=== PATIENT | female | born 1955 | race African-American/Black ===

== ENCOUNTER 2017-07-08 08:49 | Outpatient (CLI) | payer BC | END 2017-07-08 08:50 | disposition home or self-care (01) | LOC: BICMAMMO 08:49 | PROVIDERS: ATTEND Physician Assistant | DX: Z12.31 Encounter for screening mammogram for malignant neoplasm of breast (principal); M81.0 Age-related osteoporosis without current pathological fracture | CPT/HCPCS: 77063; 77067; 77080 ==

== ENCOUNTER 2018-03-09 12:52 | Outpatient (CLI) | payer BC ==
--- NOTE | 2018-03-09 14:17 | RAD ---
TWO VIEWS LEFT HIP 03/10/18 INDICATION: Left hip pain. COMPARISON: None. FINDINGS: There is mild degenerative arthrosis of the left hip. IMPRESSION: No acute osseous abnormality. Mild degenerative arthrosis left hip. POS: [facility]
== END 2018-03-09 12:53 | disposition home or self-care (01) ==
LOC: TBSIIMAG 12:52
PROVIDERS: ATTEND Neurological Surgery
DX: M25.552 Pain in left hip (principal); M54.16 Radiculopathy, lumbar region; M16.12 Unilateral primary osteoarthritis, left hip

== ENCOUNTER 2018-03-19 12:39 | Outpatient (CLI) | payer BC ==
--- NOTE | 2018-03-19 15:00 | MRI ---
MRI LUMBAR SPINE WITHOUT IV CONTRAST: Date: 03/19/18 HISTORY: Lumbar radiculopathy, bilateral hip pain greater on left side. Symptoms have been present for 2 years . COMPARISON: None available. FINDINGS: There is a 1.0 cm increased T2-weighted signal intensity focus in the inferior pole of the right kidn ey. I am unsure if this is related to a portion of the collecting system or this is related to a smal l parapelvic renal cyst. Remainder of retroperitoneal structures demonstrate a normal MRI appearance. There is mild left convex scoliosis of the lumbar spine. There is heterogeneity of the bone marrow, w hich could be related to conversion to red marrow. Multilevel degenerative changes are seen in the lumbar spine. Conus medullaris is normal in appearanc e and terminates at the level of the L1 vertebral body. T11-12 Level: There is a mild broad based disc osteophyte complex. There is mild effacement of the ventral subarach noid space. The neural foramina are patent. T12-L1 Level: There is no disc bulge or disc herniation. Central spinal canal and neural foramina are patent. L1-2 Level: There is mid disc osteophyte complex present. This results in slight flattening of the anterior aspec t of the thecal sac. There is mild bilateral neural foraminal narrowing present. L2-3 Level: There is broad based disc osteophyte complex which results in only slight effacement of the ventral a spect of the thecal sac. There is mild bilateral neural foraminal narrowing. L3-4 Level: There is a mild broad based disc osteophyte complex. Mild facet hypertrophic changes are noted. There is prominent epidural fat seen posteriorly. There is mild generalized narrowing of the central spina l canal related to the prominent epidural fat, which was also seen lateral to the thecal sac at this level. Minimal disc osteophyte complex is present, which does not result in significant mass effect o n the thecal sac. The neural foramina are patent with minimal encroachment on the right neural forame n. L4-5 Level: There is loss of intervertebral disc height. There is a broad based disc osteophyte complex. Prominen t facet hypertrophic changes are seen on the left. There is prominence of the epidural fat posteriorl y. There is generalized narrowing of the thecal sac, predominantly related to the prominence of the e pidural fat posteriorly, in addition to the mild disc bulge. There is mild bilateral neural foraminal narrowing, greater on the left. L5-S1 Level: There is loss of intervertebral disc height with mild end plate degenerative changes. There is a broa d based disc osteophyte complex which results in slight flattening of the anterior aspect of the thec al sac. Prominent osteophyte is seen laterally on the left at this level and there are facet hypertro phic changes greater on the left. Findings result in moderate left-sided neural foraminal narrowing. The lateral osteophyte may potentially contact the exited left L5 nerve root laterally. There is mini mal right-sided neural foraminal narrowing. IMPRESSION: 1. Multilevel degenerative changes within the lumbar spine. 2. Left convex scoliosis lumbar spine. POS: [facility]
== END 2018-03-19 12:40 | disposition home or self-care (01) ==
LOC: TBSIIMAG 12:39
PROVIDERS: ATTEND Neurological Surgery
DX: M47.26 Other spondylosis with radiculopathy, lumbar region (principal); M41.9 Scoliosis, unspecified
CPT/HCPCS: 72148

== ENCOUNTER 2018-07-12 09:51 | Outpatient (CLI) | payer BC | END 2018-07-12 09:52 | disposition home or self-care (01) | LOC: BICMAMMO 09:51 | PROVIDERS: ATTEND Physician Assistant | DX: Z12.31 Encounter for screening mammogram for malignant neoplasm of breast (principal) | CPT/HCPCS: 77063; 77067 ==

== ENCOUNTER 2019-07-19 09:54 | Outpatient (CLI) | payer OTHER ==
--- NOTE | 2019-07-19 10:44 | BD ---
EXAM: DEXA bone density examination HISTORY: 64-year-old postmenopausal female for screening COMPARISON: None FINDINGS: L1--bone mineral density 1.125 g/sq cm; T score 1.2 L2--bone mineral density 1.013 g/sq cm; T score -0.1 L3--bone mineral density 1.075 g/sq cm; T score -0.1 L4--bone mineral density 1.193 g/sq cm; T score 1.2 Total L1-L4--bone mineral density 1.104 g/sq cm; T score 0.5 Right femoral neck--bone mineral density0.769; T score -0.7 Total proximal right femur--bone mineral density 0.897; T score -0.4 IMPRESSION: Normal bone mineral density.
--- NOTE | 2019-07-19 11:25 | MMO ---
Bilateral MAMMO Bilat Screen [facility]. CLINICAL HISTORY: Patient is 64 years old and is seen for screening. The patient has no family history of breast cancer. The patient has no personal history of cancer. The patient has a history of left Excisional Biopsy at an unknown age - benign. VIEWS: The views performed were: bilateral craniocaudal with tomosynthesis and bilateral mediolateral oblique with tomosynthesis. FILMS COMPARED: The present examination has been compared to prior imaging studies performed at [facility] on 07/05/2015, 07/08/2016, 07/08/2017 and 07/12/2018. This study has been interpreted with the assistance of computer-aided detection. MAMMOGRAM FINDINGS: The breasts are almost entirely fat. There are no suspicious masses, suspicious calcifications, or new areas of architectural distortion. IMPRESSION: THERE IS NO MAMMOGRAPHIC EVIDENCE OF MALIGNANCY. A ROUTINE FOLLOW-UP MAMMOGRAM IN 1 YEAR IS RECOMMENDED. THE RESULTS OF THIS EXAM WERE SENT TO THE PATIENT. ACR BI-RADS Category 1 - Negative MAMMOGRAPHY NOTE: 1. A negative mammogram report should not delay a biopsy if a dominant of clinically suspicious mass is present. 2. Approximately 10% to 15% of breast cancers are not detected by mammography. 3. Adenosis and dense breasts may obscure an underlying neoplasm. Reported by: RENÉ KNIGHT MD Electonically Signed: [id number]
== END 2019-07-19 09:55 | disposition home or self-care (01) ==
LOC: BICMAMMO 09:54
PROVIDERS: ATTEND Physician Assistant
DX: Z12.31 Encounter for screening mammogram for malignant neoplasm of breast (principal); Z13.820 Encounter for screening for osteoporosis; Z91.89 Other specified personal risk factors, not elsewhere classified
CPT/HCPCS: 77063; 77067; 77080

== ENCOUNTER 2020-07-23 10:13 | Outpatient (CLI) | payer MEDICARE ==
--- NOTE | 2020-07-23 11:00 | MMO ---
Bilateral MAMMO Bilat Screen [facility]. CLINICAL HISTORY: Patient is 65 years old and is seen for screening. The patient has no family history of breast cancer. The patient has no personal history of cancer. The patient has a history of left Excisional Biopsy at an unknown age - benign. VIEWS: The views performed were: bilateral craniocaudal with tomosynthesis; bilateral mediolateral oblique with tomosynthesis; and right mediolateral oblique. FILMS COMPARED: The present examination has been compared to prior imaging studies performed at [facility] on 07/08/2016, 07/08/2017, 07/12/2018 and 07/19/2019. This study has been interpreted with the assistance of computer-aided detection. MAMMOGRAM FINDINGS: There are scattered fibroglandular densities. There are no suspicious masses, suspicious calcifications, or new areas of architectural distortion. IMPRESSION: THERE IS NO MAMMOGRAPHIC EVIDENCE OF MALIGNANCY. A ROUTINE FOLLOW-UP MAMMOGRAM IN 1 YEAR IS RECOMMENDED. THE RESULTS OF THIS EXAM WERE SENT TO THE PATIENT. ACR BI-RADS Category 1 - Negative MAMMOGRAPHY NOTE: 1. A negative mammogram report should not delay a biopsy if a dominant of clinically suspicious mass is present. 2. Approximately 10% to 15% of breast cancers are not detected by mammography. 3. Adenosis and dense breasts may obscure an underlying neoplasm. Reported by: ELIANA ALEMAN MD Electonically Signed: [id number]
== END 2020-07-23 10:14 | disposition home or self-care (01) ==
LOC: BICMAMMO 10:13
PROVIDERS: ATTEND Physician Assistant
DX: Z12.31 Encounter for screening mammogram for malignant neoplasm of breast (principal); Z91.89 Other specified personal risk factors, not elsewhere classified
CPT/HCPCS: 77063; 77067

== ENCOUNTER 2020-09-11 09:49 | Outpatient (CLI) | payer MEDICARE | END 2020-09-11 09:50 | disposition home or self-care (01) | LOC: BICULT 09:49 | PROVIDERS: ATTEND Internal Medicine Nephrology | DX: I12.9 Hypertensive chronic kidney disease with stage 1 through stage 4 chronic kidney disease, or unspecified chronic kidney disease (principal); N18.30 Chronic kidney disease, stage 3 unspecified | CPT/HCPCS: 36415; 76770; 80048; 81003; 82040; 82306; 82570; 83735; 83970; 84100; 84156; 85025; 86038; 86225 ==

== ENCOUNTER 2021-08-02 08:40 | Outpatient (CLI) | payer MEDICARE | END 2021-08-02 08:41 | disposition home or self-care (01) | LOC: BICMAMMO 08:40 | PROVIDERS: ATTEND Physician Assistant | DX: Z12.31 Encounter for screening mammogram for malignant neoplasm of breast (principal); Z13.820 Encounter for screening for osteoporosis; M85.852 Other specified disorders of bone density and structure, left thigh; Z91.89 Other specified personal risk factors, not elsewhere classified | CPT/HCPCS: 77063; 77067; 77080 ==

== ENCOUNTER 2022-08-12 09:59 | Outpatient (CLI) | payer MEDICARE | END 2022-08-12 10:00 | disposition home or self-care (01) | LOC: BICMAMMO 09:59 | PROVIDERS: ATTEND Physician Assistant | DX: Z12.31 Encounter for screening mammogram for malignant neoplasm of breast (principal); Z91.89 Other specified personal risk factors, not elsewhere classified | CPT/HCPCS: 77063; 77067 ==

== ENCOUNTER 2023-12-11 15:46 | Outpatient (CLI) | payer MEDICARE | END 2023-12-11 15:47 | disposition home or self-care (01) | LOC: SCSRAD 15:46 | PROVIDERS: ATTEND Physician Assistant | DX: S22.41XA Multiple fractures of ribs, right side, initial encounter for closed fracture (principal); R91.8 Other nonspecific abnormal finding of lung field ==

== ENCOUNTER 2024-01-08 12:07 | Outpatient (CLI) | payer MEDICARE | END 2024-01-08 12:08 | disposition home or self-care (01) | LOC: SCSRAD 12:07 | PROVIDERS: ATTEND Physician Assistant | DX: S22.41XD Multiple fractures of ribs, right side, subsequent encounter for fracture with routine healing (principal) ==